=== PATIENT | male | born 1990 | race Caucasian/White ===

== ENCOUNTER 2017-12-04 11:18 | Emergency (ER) | payer OTHER ==
[2017-12-04 11:39] VITALS: BP 102/56
[2017-12-04] MEDS ORDERED: Tetracaine 0.5% OPTH.SOL 4 ML* 1 DROP BTL ONE (11:48)
[2017-12-04] MEDS ORDERED: Fluorescein Sod TOPICAL 0.6* 0.6 MG TEST OPHTHALMIC ONE (11:49)
--- NOTE | 2017-12-04 13:04 | UC ---
Eye Complaint HPI - HPI Summary HPI Summary: Patient is a 27-year-old male presenting to the with chief complaint of left eye injury which occurred approximately 30 minutes prior to arrival. He states he was shaving pieces of metal when he felt a metal piece get caught in his eye. He endorses copious amount of tearing from the eye and pain. The eye is very erythematous on arrival. He also states he might have gotten a piece of metal in the right eye several days ago which has been also bothering him. Denies any itching. Endorses pain in both eyes bilaterally, worse to the left. He endorses previous foreign bodies in the bilateral eyes on the past. Rinsed with normal saline at work and on arrival without relief. - History of Current Complaint Hx Obtained From: Patient Onset/Duration: Sudden Onset Timing: Constant Severity Initially: Moderate Severity Currently: Moderate Pain Intensity: 0 Pain Scale Used: 0-10 Numeric Location of Injury: Conjunctiva Character: Sharp Aggravating Factor(s): Light, Blinking Alleviating Factor(s): Eye Drops Associated Signs And Symptoms: Positive: Photophobia, Drainage (Clear) Related History: Foreign Body - Risk Factors Penetrating Injury Risk Factor: Hammering Globe Rupture Risk Factors: Negative, Recent Trauma Acute Glaucoma Risk Factors: Negative Optic Artery Occlusion Risk Factors: Negative <Sanna Chowdhury - Last Filed: 12/04/17 12:58> <Abril Crockett - Last Filed: 12/04/17 14:06> - History of Current Complaint Chief Complaint: UCEye Stated Complaint: EYE INJURY Time Seen by Provider: 12/04/17 11:46 - Allergies/Home Medications Allergies/Adverse Reactions: Allergies Allergy/AdvReac Type Severity Reaction Status Date / Time No Known Allergies Allergy Verified 12/04/17 11:39 Home Medications: Home Medications Naproxen Sodium [Naproxen 220 mg] 440 mg PO 12/04/17 [History] PMH/Surg Hx/FS Hx/Imm Hx Previously Healthy: Yes - Surgical History Surgical History: Yes Surgery Procedure, Year, and Place: Fx R hip - Family History Known Family History: Positive: Blood Disorder - Factor V Leiden, Other - Migraines - Social History Occupation: Employed Full-time Lives: With Family Alcohol Use: Occasionally Substance Use Type: Marijuana Substance Use Comment - Amount & Last Used: occasional use- last used yesterday Smoking Status (MU): Light Every Day Tobacco Smoker Type: Cigarettes Amount Used/How Often: 1 pack daily Length of Time of Smoking/Using Tobacco: 6 YRS Have You Smoked in the Last Year: Yes <Sanna Chowdhury Nikky - Last Filed: 12/04/17 12:58> Review of Systems Constitutional: Negative Skin: Negative Eyes: Drainage, Eye Redness, Photophobia, Other - foreign body in bilateral eyes Respiratory: Negative Cardiovascular: Negative Motor: Negative Neurovascular: Negative Neurological: Negative Psychological: Negative Is Patient Immunocompromised?: No All Other Systems Reviewed And Are Negative: Yes <Sanna Chowdhury Nikky - Last Filed: 12/04/17 12:58> Physical Exam Triage Information Reviewed: Yes Appearance: Well-Appearing, Well-Nourished Vital Signs: Initial Vital Signs Temp 98.4 F 12/04/17 11:36 Pulse 60 12/04/17 11:36 Resp 18 12/04/17 11:36 BP 102/56 12/04/17 11:36 Pulse Ox 99 12/04/17 11:36 Vital Signs Reviewed: Yes Eye Exam: Normal Eyes: Positive: Conjunctiva Clear Neck exam: Normal Neck: Positive: Supple Respiratory Exam: Normal Respiratory: Positive: Chest non-tender, Lungs clear Musculoskeletal Exam: Normal Musculoskeletal: Positive: Strength Intact Neurological Exam: Normal Neurological: Positive: Alert Psychological: Positive: Normal Response To Family Skin Exam: Normal <Sanna Chowdhury Nikky - Last Filed: 12/04/17 12:58> Vital Signs: Initial Vital Signs Temp 98.4 F 12/04/17 11:36 Pulse 60 12/04/17 11:36 Resp 18 12/04/17 11:36 BP 102/56 12/04/17 11:36 Pulse Ox 99 12/04/17 11:36 <Abril Crockett - Last Filed: 12/04/17 14:06> Eye Complaint Course/Dx - Course Course Of Treatment: During the course of treatment, the patient is evaluated for foreign body of the eye. He feels there is a FB in the eye. After scanning the eye with fluorosceine uptake using tetracaine analgesic, the upper and lower lids retracted to allow for assessment of FB under the eye lids. No obvious perforation with teardrop pupil, vitreous extrusion. Small metal piece visualized to the left and right eyes. No orbital compartment syndrome, hyphema , subconjunctival hemorrhage, evidence of increased intraorbital pressure. Provider is able to see a medium sized foreign body to the cornea of the left eye. There is also a small foreign body to the right eye, both resembling small metal pieces. Tetracaine with fluorescein applied to bilateral eyes. Q- tip used to dislodge both foreign bodies with good effect. Patient states he feels improved. Visualized 2 small abrasions where the foreign bodies were located. Polymyxin-trimethoprim abx drops given for antibiotic. Patient is encouraged to follow up with opthomology today if symptoms persist. He is given a follow-up with ophthalmology otherwise for 1-2 days. Patient agrees to plan and is discharged to home. - Differential Dx/Diagnosis Differential Diagnosis/HQI/PQRI: Corneal Abrasion, Foreign Body Provider Diagnoses: Foreign body in bilateral eyes <Sanna Chowdhury - Last Filed: 12/04/17 12:58> Discharge - Sign-Out/Discharge Documenting (check all that apply): Discharge/Admit/Transfer - Billing Disposition and Condition Condition: STABLE Disposition: HOME <Sanna Chowdhury - Last Filed: 12/04/17 12:58> - Billing Disposition and Condition Condition: STABLE Disposition: HOME <Abril Crockett - Last Filed: 12/04/17 14:06> - Discharge Plan Condition: Stable Disposition: HOME Prescriptions: Polymyx/Trimethoprim OPTH* [Polytrim OPHTH*] 1 drop BOTH EYES Q3H #1 btl Patient Education Materials: Eye Foreign Body (ED) Referrals: Serg Cruz MD [Medical Doctor] - Onel Rodriguez [Primary Care Provider] - Additional Instructions: Please follow-up with Dr. Cruz Call his office today Drops 4 times daily 7 days Ibuprofen or Tylenol for any discomfort Attestation Statement User Type: Provider - I was available for consult. This patient was seen by the [facility]NA[facility]. The patient was not presented to, seen by, or examined by me. -Raymond <Abril Crockett - Last Filed: 12/04/17 14:06>
== END 2017-12-04 12:25 | disposition home or self-care (01) ==
LOC: UCEAST 11:18
DX: T15.02XA Foreign body in cornea, left eye, initial encounter (principal); T15.01XA Foreign body in cornea, right eye, initial encounter; X58.XXXA Exposure to other specified factors, initial encounter; Y93.89 Activity, other specified; Y92.9 Unspecified place or not applicable; F17.210 Nicotine dependence, cigarettes, uncomplicated
CPT/HCPCS: 65220; 99212; A9270-GY; G0463